=== PATIENT | female | born 1960 | race Caucasian/White ===

== ENCOUNTER 2017-02-25 14:20 | Observation (INO) | payer SELFPAY ==
--- NOTE | 2017-02-25 14:51 | DR.GENAD ---
HPI - PCP Primary Care Physician: DR. SZYMANSKI - Complaint/Symptoms Chief Complaint Doctors Comments: RLQ ABDOMINAL PAIN TIMES ONE DAY. Chief Complaint:: PATIENT STATED THAT SHE HAD A SHARP RIGHT LOWER ABD. PAIN YESTERDAY AND HAS GOTTEN WORSE. - Source History Provided: Patient - Mode of Arrival Mode of Arrival: Ambulatory - Timing Onset of Chief Complaint: 02/24/17 PMH - PMH Past Medical History: Yes Past Medical History: Hypertension Past Surgical History: Yes Surgical History: Cholecystectomy - Family History History of Family Medical Conditions: Yes Family Medical History: Cancer, PA, Coronary Artery Disease, Hypertension - Social History Does patient currently use any type of tobacco product: Yes Have you used tobacco products in the last 12 months: Yes Type of Tobacco Use: Cigarettes Does any household member use tobacco: No Alcohol Use: None Do you use any recreational Drugs:: No Lives With: Family Lives Where: Home - infectious screening In the last 2 months have you had wt loss of >10#?: NO Have you had fever, night sweats or hemotysis?: No Have you traveled outside the country in the last 6 months?: No Isolation: Standard PE - Vital Signs Vitals: Temperature 98.1 F Pulse Rate 96 Respiratory Rate 20 Blood Pressure [Right Arm] 114/78 Blood Pressure 127/85 O2 Sat by Pulse Oximetry 99 - Discharge Plan Condition: Stable - Follow ups/Referrals Follow ups/Referrals: Andriy Szymanski [Primary Care Provider] - 3 days - Instructions
[2017-02-25 15:09] LABS: BILIRUBIN,URINE NEGATIVE (NEGATIVE); BLOOD/HEMOGLOBIN,URINE NEGATIVE (NEGATIVE); GLUCOSE, URINE NEGATIVE (NEGATIVE); KETONES,URINE NEGATIVE (NEGATIVE); LEUKOCYTE ESTERASE ,URINE 1+ (NEGATIVE); NITRITES,URINE NEGATIVE (NEGATIVE); PROTEIN,URINE NEGATIVE (NEGATIVE); UROBILINOGEN,URINE NORMAL (NORMAL)
[2017-02-25 15:12] LABS: BASOPHILS # (AUTO) 0.1 X10^3/uL (0.0-0.1); BASOPHILS % (AUTO) 0.7 % (0.2-1.0); EOSINOPHILS # (AUTO) 0.2 x10^3/uL (0.0-0.2); EOSINOPHILS % (AUTO) 2.1 % (0.9-2.9); HEMATOCRIT 44.8 % (36.0-47.0); HEMOGLOBIN 15.1 g/dL (12.0-16.0); LYMPHOCYTES # (AUTO) 3.6 X10^3/uL (1.3-2.9); LYMPHOCYTES % (AUTO) 30.5 % (21.0-51.0); MEAN CORPUSCULAR HEMOGLOBIN 31.1 pg (27.0-34.0); MEAN CORPUSCULAR HGB CONC 33.6 g/dL (33.0-35.0); MEAN CORPUSCULAR VOLUME 92.6 fL (80.0-100.0); MEAN PLATELET VOLUME 8.9 fL (7.4-11.0); MONOCYTES # (AUTO) 0.7 x10^3/uL (0.3-0.8); NEUTROPHILS # (AUTO) 7.2 x10^3/uL (2.2-4.8); NEUTROPHILS % (AUTO) 60.7 % (42.0-75.0); PLATELET COUNT 207 X10^3/uL (150.0-450.0); RED BLOOD COUNT 4.83 X10^6/uL (3.5-5.4); RED CELL DISTRIBUTION WIDTH 13.2 % (11.6-16.5); WHITE BLOOD COUNT 11.9 X10^3/uL (3.6-10.0)
[2017-02-25 15:20] LABS: ALANINE AMINOTRANSFERASE 21 Units/L (12-78); ALKALINE PHOSPHATASE 71 Units/L (46-116); AMYLASE 40 Units/L (25-115); ASPARTATE AMINO TRANSFERASE 15 Units/L (15-37); BLOOD UREA NITROGEN 10 mg/dL (7-18); CALCIUM 9.2 mg/dL (8.5-10.1); CARBON DIOXIDE 29.8 mmol/L (21-32); CHLORIDE 106 mmol/L (98-107); CREATININE 0.94 mg/dL (0.55-1.02); GLUCOSE 96 mg/dL (65-99); LIPASE 90 Units/L (73-393); SODIUM 143 mmol/L (136-145); TOTAL PROTEIN 7.3 g/dL (6.4-8.2); eGFR BLACK RACES > 60 (>60); eGFR NON BLACK RACES > 60 (>60)
[2017-02-25 15:20] LABS: APPEARANCE,URINE HAZY (CLEAR); BACTERIA,URINE 1+ /HPF (NEGATIVE); COLOR,URINE YELLOW (YELLOW); RBC,URINE 0-2 /HPF (NEGATIVE); SQUAMOUS EPITHELIAL CELL,UR MODERATE /HPF (NEGATIVE)
[2017-02-25] MEDS ORDERED: MORPHINE SULFATE INJ 4 MG ONE (15:29)
[2017-02-25] MEDS ORDERED: ZOFRAN INJ 4 MG VIAL ONE (15:29)
[2017-02-25] MEDS ORDERED: MORPHINE SULFATE INJ 4 MG IVP ONE (15:45)
[2017-02-25] MEDS ORDERED: ZOFRAN INJ 4 MG VIAL IVP ONE (15:45)
[2017-02-25] MEDS ORDERED: NS 100 ML IV 100 ML IV ONE (17:40)
--- NOTE | 2017-02-25 18:20 | CT ---
HISTORY: Right lower quadrant abdominal pain Study: CT abdomen and pelvis with contrast Comparison: March 12, 2016 Technique: Multiple axial images of the abdomen and pelvis were obtained from the lung bases to the pubic symph ysis with the administration of IV contrast. Findings: Minimal atelectasis and or scarring are noted within the visualized lungs. The liver, spleen, pancre as, and adrenals are unremarkable in appearance. No CT evidence of hydronephrosis is identified. The appendix is partially air-filled and otherwise unremarkable. Scattered diverticula are seen within the transverse, descending, and sigmoid colon. The urinary bladder is not well-distended but otherwi se grossly unremarkable. Degenerative changes of the spine are noted. Surgical clips are noted withi n the gallbladder fossa. IMPRESSION: 1. Diverticulosis. 2. Cholecystectomy. Reported By:
[2017-02-25] MEDS ORDERED: MORPHINE SULFATE INJ 4 MG IVP PRN (19:00)
[2017-02-25] MEDS ORDERED: ZOFRAN INJ 4 MG VIAL IVP PRN (19:00)
[2017-02-25] MEDS ORDERED: PATIENT'S HOME MEDICATION (Pravastatin Sodium [Pravastatin Sodium] 1 TAB) PO SCH (21:00)
[2017-02-25] MEDS: NS 1000 ML 1,000 ML IV SCH (21:11)
[2017-02-25] MEDS: PEPCID 20 MG IV PREMIX* 20 MG/50 ML BAG IV SCH (21:12)
[2017-02-25] MEDS: PRAVACHOL PO SCH ×2 (21:17→21:37)
[2017-02-25] MEDS: ZANAFLEX PO SCH (21:17)
[2017-02-25] MEDS: FLAGYL IV PREMIX 500 MG BAG 500 MG/100 ML BAG IV SCH (21:18)
[2017-02-25] MEDS: ZESTRIL TAB 10 MG PO SCH ×2 (21:18→21:37)
[2017-02-25] MEDS: CIPRO IV 400 MG PREMIX* 400 MG/200 ML IV.SOLN. IV SCH ×2 (21:18)
[2017-02-25 21:49] VITALS: BMI 25.6
[2017-02-25] MEDS ORDERED: PATIENT'S HOME MEDICATION (Tizanidine Hcl [Zanaflex 4 Mg] 1 TAB) PO SCH (22:00)
[2017-02-26] MEDS: NS 1000 ML 1,000 ML IV SCH ×3 (02:16→21:28)
[2017-02-26] MEDS: FLAGYL IV PREMIX 500 MG BAG 500 MG/100 ML BAG IV SCH ×4 (02:16→21:27)
[2017-02-26] MEDS: ZANAFLEX PO SCH ×3 (05:25→21:27)
[2017-02-26 05:44] LABS: BASOPHILS % (AUTO) 0.6 % (0.2-1.0); EOSINOPHILS # (AUTO) 0.3 x10^3/uL (0.0-0.2); EOSINOPHILS % (AUTO) 4.2 % (0.9-2.9); HEMATOCRIT 38.5 % (36.0-47.0); HEMOGLOBIN 13.1 g/dL (12.0-16.0); LYMPHOCYTES # (AUTO) 2.8 X10^3/uL (1.3-2.9); LYMPHOCYTES % (AUTO) 38.5 % (21.0-51.0); MEAN CORPUSCULAR HEMOGLOBIN 31.3 pg (27.0-34.0); MEAN CORPUSCULAR VOLUME 92.1 fL (80.0-100.0); MEAN PLATELET VOLUME 9.4 fL (7.4-11.0); MONOCYTES # (AUTO) 0.7 x10^3/uL (0.3-0.8); MONOCYTES % (AUTO) 9.1 % (0.0-13.0); NEUTROPHILS # (AUTO) 3.5 x10^3/uL (2.2-4.8); NEUTROPHILS % (AUTO) 47.6 % (42.0-75.0); PLATELET COUNT 159 X10^3/uL (150.0-450.0); RED BLOOD COUNT 4.18 X10^6/uL (3.5-5.4); RED CELL DISTRIBUTION WIDTH 13.3 % (11.6-16.5); WHITE BLOOD COUNT 7.3 X10^3/uL (3.6-10.0)
[2017-02-26 05:52] LABS: ALANINE AMINOTRANSFERASE 17 Units/L (12-78); ALBUMIN 2.8 g/dL (3.4-5.0); ALKALINE PHOSPHATASE 54 Units/L (46-116); ASPARTATE AMINO TRANSFERASE 14 Units/L (15-37); BLOOD UREA NITROGEN 10 mg/dL (7-18); CALCIUM 8.2 mg/dL (8.5-10.1); CARBON DIOXIDE 26.9 mmol/L (21-32); CHLORIDE 109 mmol/L (98-107); COR CA(FOR HYPOALB) 9.2 mg/dL (8.5-10.1); CREATININE 0.89 mg/dL (0.55-1.02); GLUCOSE 100 mg/dL (65-99); SODIUM 143 mmol/L (136-145); TOTAL PROTEIN 5.5 g/dL (6.4-8.2); eGFR BLACK RACES > 60 (>60); eGFR NON BLACK RACES > 60 (>60)
[2017-02-26] MEDS ORDERED: CIPRO IV 400 MG PREMIX* 400 MG/200 ML IV.SOLN. IV SCH (09:00)
[2017-02-26] MEDS: PEPCID 20 MG IV PREMIX* 20 MG/50 ML BAG IV SCH ×2 (09:14→21:28)
[2017-02-26] MEDS: CIPRO IV 400 MG PREMIX* 400 MG/200 ML IV.SOLN. IV SCH ×2 (09:14→21:27)
[2017-02-26] MEDS ORDERED: ULTRAM PO PRN (16:29)
[2017-02-26] MEDS: ASPIRIN EC 81 MG PO SCH (18:41)
[2017-02-26] MEDS: ZANTAC PO SCH (18:41)
[2017-02-26] MEDS: PRAVACHOL PO SCH (21:26)
[2017-02-26] MEDS: ZESTRIL TAB 20 MG PO SCH (21:27)
[2017-02-27] MEDS: FLAGYL IV PREMIX 500 MG BAG 500 MG/100 ML BAG IV SCH ×2 (03:59→08:32)
[2017-02-27] MEDS: NS 1000 ML 1,000 ML IV SCH ×2 (03:59→11:20)
[2017-02-27 04:51] LABS: ALANINE AMINOTRANSFERASE 17 Units/L (12-78); ALBUMIN 2.9 g/dL (3.4-5.0); ALKALINE PHOSPHATASE 51 Units/L (46-116); ASPARTATE AMINO TRANSFERASE 14 Units/L (15-37); BLOOD UREA NITROGEN 11 mg/dL (7-18); CALCIUM 8.3 mg/dL (8.5-10.1); CARBON DIOXIDE 26.6 mmol/L (21-32); CHLORIDE 112 mmol/L (98-107); COR CA(FOR HYPOALB) 9.2 mg/dL (8.5-10.1); CREATININE 0.82 mg/dL (0.55-1.02); GLUCOSE 100 mg/dL (65-99); SODIUM 145 mmol/L (136-145); TOTAL PROTEIN 5.6 g/dL (6.4-8.2); eGFR BLACK RACES > 60 (>60); eGFR NON BLACK RACES > 60 (>60)
[2017-02-27 05:14] LABS: BASOPHILS % (AUTO) 0.6 % (0.2-1.0); EOSINOPHILS # (AUTO) 0.3 x10^3/uL (0.0-0.2); EOSINOPHILS % (AUTO) 5.7 % (0.9-2.9); HEMATOCRIT 36.2 % (36.0-47.0); HEMOGLOBIN 12.5 g/dL (12.0-16.0); LYMPHOCYTES # (AUTO) 2.2 X10^3/uL (1.3-2.9); LYMPHOCYTES % (AUTO) 37.5 % (21.0-51.0); MEAN CORPUSCULAR HEMOGLOBIN 31.3 pg (27.0-34.0); MEAN CORPUSCULAR HGB CONC 34.4 g/dL (33.0-35.0); MONOCYTES # (AUTO) 0.5 x10^3/uL (0.3-0.8); MONOCYTES % (AUTO) 8.9 % (0.0-13.0); NEUTROPHILS # (AUTO) 2.8 x10^3/uL (2.2-4.8); NEUTROPHILS % (AUTO) 47.3 % (42.0-75.0); PLATELET COUNT 163 X10^3/uL (150.0-450.0); RED BLOOD COUNT 3.98 X10^6/uL (3.5-5.4); RED CELL DISTRIBUTION WIDTH 12.9 % (11.6-16.5)
[2017-02-27] MEDS: ZANAFLEX PO SCH (06:00)
[2017-02-27 06:27] LABS: ERYTHROCYTE SEDIMENTATION RATE 7 MM/HOUR (0-20)
[2017-02-27] MEDS: PEPCID 20 MG IV PREMIX* 20 MG/50 ML BAG IV SCH (08:29)
[2017-02-27] MEDS: ASPIRIN EC 81 MG PO SCH (08:31)
[2017-02-27] MEDS: ZANTAC PO SCH (08:31)
[2017-02-27] MEDS: CIPRO IV 400 MG PREMIX* 400 MG/200 ML IV.SOLN. IV SCH (08:32)
[2017-02-27] MEDS ORDERED: COLACE CAP 100 MG PO SCH (09:00)
[2017-02-27] MEDS ORDERED: MILK OF MAGNESIA PO SCH (09:00)
--- NOTE | 2017-02-27 11:59 | DR.H&P ---
H&P - History & Physical for Day of: H&P Date: 02/25/17 - Chief Complaint Chief Complaint: Abdominal Pain - Allergies Allergies/Adverse Reactions: Allergies Allergy/AdvReac Type Severity Reaction Status Date / Time No Known Drug Allergy Allergy Verified 08/01/16 13:48 - History of Present Illness History of Present Illness: Patient presented to the emergency room with complaints of right lower quadrant pain that has been going on for one day that has gotten worse. Patient has history of hypertension, COPD, and osteoarthritis. An abdominal CTE was performed on the patient which showed Diverticulosis. Patient was admitted to the hospital for further observation. IV fluids, IV Antibiotics as well as morphine for pain and Zofran for nausea. Admission labs were within normal limits with the exception of WBC 11.9, Neut# 7.2, and Lymph# 3.6 Vital Signs 981, 96, 99% on nasal cannula 127/85 - Past Medical History Past Medical History: COPD, GERD, Hypertension - Past Surgical History Surgical History: Cholecystectomy - Family History Family Medical History: Diabetes Mellitus, Hypertension - Social History Does patient currently use any type of tobacco product: Yes Have you used tobacco products in the last 12 months: Yes Type of Tobacco Use: Cigarettes Does any household member use tobacco: No Alcohol Use: None Drug Use: None - Medications Home Medications: Aspirin [Aspirin Adult Low Dose] 1 tab PO DAILY 02/25/17 [History Confirmed 04/07] Pravastatin Sodium 1 tab PO HS 02/25/17 [History Confirmed 02/26/17] Ranitidine HCl [Ranitidine [address]] 1 tab PO DAILY 02/25/17 [History Confirmed 02/26/17] Tramadol HCl 1 tab PO TID PRN 02/25/17 [History Confirmed 02/26/17] Lisinopril 1 tab PO HS 02/26/17 [History Confirmed 02/26/17] - Review of Systems Constitutional: No Symptoms Reported Eyes: No Symptoms Reported ENT: No Symptoms Reported Respiratory: No Symptoms Reported Cardiovascular: No Symptoms Reported Gastrointestinal: Nausea, Abdominal Pain Genitourinary: No Symptoms Reported Musculoskeletal: No Symptoms Reported Skin: No Symptoms Reported Neurological: No Symptoms Reported - Physical Exam Vital Signs: 98.1, 96, 99% on nasal cannula 127/85 Oriented: Normal Eyes: Normal Ear: Normal Nose: Normal Throat: Normal Respiratory: Clear Throughout Cardiovascular: Normal : Normal Auscultation: Bowel Sounds: Normal Palpation: Normal Tenderness: Normal Skin: Normal Musculoskeletal: Normal Psychiatric: Normal Mood Description: Calm, Appropriate Affect: Normal Speech Pattern: Clear, Appropriate - Assessment/Plan (1) Diverticulosis Qualifiers: Diverticulosis site: D Diverticulosis bleeding: D Status: Acute Plan: IV cipro and levaquin (2) Abdominal pain Qualifiers: Abdominal location: A Status: Acute Plan: morphine IV as needed
--- NOTE | 2017-02-27 12:01 | PCM.PROG ---
Progress Note - Progress Note for Day of Date: 02/26/17 - Subjective Subjective: Patient is a 56yo white female who was admitted with diverticulosis. Patient is still having some pain this am so we are going to continue watch her and repeat labs in the am. Continue her home medications and continue IV Antibiotic and fluids. Vital Signs 98.0, 75, 93% on RA, 105/59Labs within normal limits with the exception of Eos% 4.2, Eos# 0.3, Chloride 109, Glucose 100, Calcium 8.2, AST 14, Total Protein 5.5, Albumin 2.8, A:bumin/ Globulin Ratio 1.0 - Past Medical Family Social History Past Med/Fam/Surg Hx: No changes since H&P Allergies: Allergies No Known Drug Allergy Allergy (Verified 08/01/16 13:48) - Review of Systems ROS: No change since H&P - Vital Signs and I&O's Vital Signs: Temperature 98.3 F Pulse Rate [Right Brachial] 71 Pulse Rate [Left Radial] 76 Pulse Rate 66 Respiratory Rate 20 Blood Pressure [Left Arm] 106/64 Blood Pressure [Right Arm] 108/74 O2 Sat by Pulse Oximetry 96 Intake and Output: Intake & Output 02/24/17 02/25/17 02/26/17 02/27/17 11:59 11:59 11:59 11:59 Intake Total 2030 2669 Balance 2030 2669 - Physical Exam Oriented: Normal Eyes: Normal Ear: Normal Nose: Normal Throat: Normal Respiratory: Normal Cardiovascular: Normal : Normal Auscultation: Bowel Sounds: Normal Palpation: Normal Tenderness: Diffuse Skin: Normal Musculoskeletal: Normal Psychiatric: Normal Mood Description: Calm, Appropriate Affect: Normal Speech Pattern: Clear, Appropriate - Laboratory and Diagnostics Result Diagrams: 02/27/17 04:15 02/27/17 04:15 Labs: Labs within normal limits with the exception of Eos% 4.2, Eos# 0.3, Chloride 109 , Glucose 100, Calcium 8.2, AST 14, Total Protein 5.5, Albumin 2.8, A:bumin/ Globulin Ratio 1.0 Radiology Reviewed: Yes - Plan (1) Diverticulosis Status: Acute Qualifiers: Diverticulosis site: D Diverticulosis bleeding: D Plan: IV cipro and levaquin (2) Abdominal pain Status: Acute Qualifiers: Abdominal location: A Plan: morphine IV as needed
--- NOTE | 2017-02-27 12:03 | DR.CARTERD ---
- Discharge Summary for: Discharge Summary for Date of:: 02/27/17 - Admission Date Date of Admission: 02/25/17 - Admission Diagnoses Admission Diagnosis: Diverticulosis. Abdominal Pain - Discharge Date Discharge Date: 02/27/17 - Discharge Diagnoses Discharge Diagnosis: Diverticulosis Abdominal Pain - Hospital Course Hospital Course: Patient is a 56yo white female who was admitted to the hospital with diverticulosis. Patient was placed on IV Fluids as well as IV Flagyl and Cipro which she responded well to. Patient states that she is feeling much better this am and her abdominal pain is not near as bad as it was on admission. Vital Signs 98.3, 71, 96% on RA, 106/64Labs within normal limits with the exception of Eos% 5.7, Eos# 0.3, Chloride 112, Glucose 100, Calcium 8.3, AST 14, Total Protein 5.6, Albumin 2.9 We are going to discharge her home in stable condition and she is to follow up in 1 week with out office. Patient will be discharged to continue her home medications as well as the addition of Miralax 17gm at bedtime, Colace 100mg PO Bid, Milk of magnesia PRN constipation, Flagyl 500mg PO Daily and Cipro 500mg Po Q12hr. Labs: Labs within normal limits with the exception of Eos% 5.7, Eos# 0.3, Chloride 112 , Glucose 100, Calcium 8.3, AST 14, Total Protein 5.6, Albumin 2.9 - Discharge Medications Discharge Medications: Aspirin [Aspirin Adult Low Dose] 1 tab PO DAILY 02/25/17 [History] Pravastatin Sodium 1 tab PO HS 02/25/17 [History] Ranitidine HCl [Ranitidine [address]] 1 tab PO DAILY 02/25/17 [History] Tramadol HCl 1 tab PO TID PRN 02/25/17 [History] Lisinopril 1 tab PO HS 02/26/17 [History] Ciprofloxacin HCl [CIPRO 500 MG TAB *] 500 mg PO Q12H #14 tab 02/27/17 [Rx] Docusate Sodium [Colace Cap 100 mg] 100 mg PO BID PRN #60 cap 02/27/17 [Rx] Magnesium Hydroxide Susp [Milk of Magnesia] 30 ml PO QID PRN #240 ml 02/27/17 [ Rx] Metronidazole [Flagyl Tab 500 mg] 500 mg PO DAILY #7 tab 02/27/17 [Rx] Polyethylene Glycol Pwd Ud [MIRALAX POWDER (17 GM DOSE) *] 17 gm PO HS #14 angela 02/27/17 [Rx] - Discharge Disposition Discharge Disposition: Home
[2017-02-27 12:26] VITALS: BP 122/91
== END 2017-02-27 12:05 | disposition home or self-care (01) ==
LOC: ER 14:27 → MED/SURG 19:02
PROVIDERS: ADMIT Internal Medicine; ATTEND Internal Medicine
DX: K57.90 Diverticulosis of intestine, part unspecified, without perforation or abscess without bleeding (principal); R10.31 Right lower quadrant pain; I25.10 Atherosclerotic heart disease of native coronary artery without angina pectoris; J44.9 Chronic obstructive pulmonary disease, unspecified; M13.89 Other specified arthritis, multiple sites; D72.828 Other elevated white blood cell count; I10 Essential (primary) hypertension
CPT/HCPCS: 36415; 74177; 80053; 81001; 82150; 83690; 85025; 85652; 86140; 99284; A4222; S0028; S0030; G0378; J0744; J2270; J2405

== ENCOUNTER → 2017-03-17 | Outpatient (CLI) | payer SELFPAY ==
[2017-02-27 12:26] VITALS: BP 122/91
[~2017-03-17] MED LIST: NS 100 ML IV 100 ML IV ONE
[2017-03-17 09:01] LABS: CREATININE 0.9 mg/dL (0.55-1.02)
--- NOTE | 2017-03-17 10:59 | CT ---
HISTORY: Right lower lobe atelectasis. Study: CT chest with contrast Comparison: CT abdomen/pelvis dated February 25, 2017 and chest x-ray dated August 26, 2016. Technique: Multiple axial images of the chest were obtained from the thoracic inlet to the upper abd omen after the administration of IV contrast. Dose reduction techniques including Automated Exposur e Control (AEC) and adjustment of mA and kV were utilized. Findings: The mediastinum does not demonstrate significant pathological lymphadenopathy. There is no paracard ial effusion observed. The thoracic aorta is normal in its contour without evidence for aneurysmal dilatation. The central pulmonary arterial system does not demonstrate central filling defects to s uggest pulmonary emboli. Mild centrilobular and paraseptal emphysematous changes, predominantly of the upper lungs. Biapical and bibasilar scarring. No obvious pulmonary nodule, pleural effusion, focal consolidation, or mass. The visualized upper abdominal structures demonstrate a normal contrast appearance. The osseous str uctures appear normal for age. IMPRESSION: 1. No CT evidence of acute thoracic pathology. 2. Chronic findings as above. Reported By:
== END ==
LOC: RAD 08:30
PROVIDERS: ATTEND Internal Medicine
DX: J98.11 Atelectasis (principal); F17.200 Nicotine dependence, unspecified, uncomplicated; R07.81 Pleurodynia
CPT/HCPCS: 36415; 71260; 82565; 84520; A4222

== ENCOUNTER 2017-08-07 09:15 | Day surgery (SDC) | payer OTHER ==
[2017-08-07] MEDS ORDERED: D5 LR 1000 ML 1,000 ML IV ONE (09:20)
[2017-08-07] MEDS ORDERED: DIPRIVAN VIAL 20 ML ONE (10:44)
[2017-08-07 11:38] VITALS: BP 111/70
== END 2017-08-07 11:40 | disposition home or self-care (01) ==
LOC: SURG1 09:15
PROVIDERS: ATTEND Internal Medicine Gastroenterology
PROC: 0D757ZZ Dilation of Esophagus, Via Natural or Artificial Opening (ICD-10-PCS; principal; 2017-08-07 12:00)
PROC: 0DB68ZX Excision of Stomach, Via Natural or Artificial Opening Endoscopic, Diagnostic (ICD-10-PCS; principal; 2017-08-07 12:00)
PROC: 0W3P8ZZ Control Bleeding in Gastrointestinal Tract, Via Natural or Artificial Opening Endoscopic (ICD-10-PCS; principal; 2017-08-07 12:00)
PROC: 0DJ08ZZ Inspection of Upper Intestinal Tract, Via Natural or Artificial Opening Endoscopic (ICD-10-PCS; principal; 2017-08-07 12:00)
DX: R13.19 Other dysphagia (principal); K21.9 Gastro-esophageal reflux disease without esophagitis; Z87.19 Personal history of other diseases of the digestive system; R10.13 Epigastric pain; Q27.33 Arteriovenous malformation of digestive system vessel; K29.60 Other gastritis without bleeding; K20.8 Other esophagitis; K22.2 Esophageal obstruction
CPT/HCPCS: A4217; J3490; J7120

== ENCOUNTER 2017-08-23 20:33 | Emergency (ER) | payer OTHER ==
[2017-08-23 20:44] VITALS: BMI 26.6
[2017-08-23] MEDS ORDERED: DEMEROL INJ IM ONE (22:50)
[2017-08-23] MEDS ORDERED: PHENERGAN INJ 25 MG IM ONE (22:50)
--- NOTE | 2017-08-23 22:51 | DR.GENAD ---
HPI - Complaint/Symptoms Chief Complaint Doctors Comments: Patient is complaining of left CVA and scapular pain for the past eight hours getting worst. states she got up this evening and thought she pulled a muscle but the pain continues in her left side worst when she moves. States she is having sharp pain that is 10 of 10. she denies dysuria, hematuria, erlinda, cold or cough or chest pain. states she is a patient of Dr. Lares and had never had problems with kidney stones. She denies any recent trauma. Chief Complaint:: PT STATE THAT TODAY SHE STOOD UP FROM A CHAIR AND BEGAN EXPERIENCING SHARP LOWER BACK PAIN ON LT SIDE. STATES THAT IT HURTS WORSE TO MOVE HER RT ARM - Nurses notes reviewed Nurses Notes Review: Yes - Source History Provided: Patient - Mode of Arrival Mode of Arrival: Ambulatory - Timing Onset of Chief Complaint: 08/23/17 Came on: Gradually - Duration Duration: Constant How lon Duration: Hours - Location Location: left lower back pain - Severity Severity: Moderate - Modifying Factors Worsens:: movement Improves:: nothing PMH - PMH Past Medical History: Yes Past Medical History: COPD, GERD, Hypertension Past Surgical History: Yes Surgical History: Cholecystectomy - Family History History of Family Medical Conditions: Yes Family Medical History: Diabetes Mellitus, Hypertension - Social History Do you use any recreational Drugs:: No - infectious screening Have you traveled outside the country in the last 6 months?: No ROS - Review of Systems Constitutional: No Symptoms Reported. negative: See HPI, Chills, Diaphoresis, Fever, Malaise, Weakness, Irritable, Fatigue, Loss of Appetite, Other Eyes: No Symptoms Reported ENTM: No Symptoms Reported. negative: See HPI, Ear Pain, Ear Discharge, Pulling on Ears, Hearing Loss, Nose Pain, Nose Discharge, Epistaxis, Nose Congestion, Mouth Pain, Mouth Swelling, Loose Teeth, Drooling, Throat Pain, Throat Swelling, Ear Foreign Body Respiratoy: No Symptoms Reported. negative: See HPI, Productive Cough, Non- Productive Cough, Moist Cough, Dry Cough, Hacking Cough, Barking Cough, Brassy Cough, Orthopnea, Short of Breath, Stridor, Wheezing, Hemoptysis, Other Cardiovascular: No Symptoms Reported. negative: See HPI, Chest Pain, Edema, Palpitations, Syncope, Cyanosis, Skin Mottling, Other Gastrointestinal/Abdominal: No Symptoms Reported, Abdominal Pain. negative: See HPI, Constipation, Diarrhea, Nausea, Vomiting, Food Intolerance, Other Genitourinary: No Symptoms Reported. negative: See HPI, Discharge, Dysuria, Frequency, Hematuria, Pain, Bleeding, Other Neurological: No Symptoms Reported. negative: See HPI, Anxiety, Depressed, Emotional Problems, Headache, Numbness, Paresthesia, Pre-existing Deficit, Seizure, Tingling, Tremors, Weakness, Dizziness, Problems Walking, Speech Problem, Other Musculoskeletal: No Symptoms Reported, Back Pain, Left Integumentary: No Symptoms Reported. negative: See HPI, Change in Color, Change in Hair/Nails, Dryness, Lesions, Lumps, Rash, Itching, Wound, Bruises, Juandice, Other Hematologic/Lymphatic: No Symptoms Reported. negative: See HPI, Anemia, Blood Clots, Easy Bleeding, Easy Bruising, Swollen Glands, Lymphadenopathy, Other Endocrine: No Symptoms Reported Psychiatric: No Symptoms Reported. negative: See HPI, Anxiety, Depression, Hallucinations, Excessive crying, Suicidal, Other PE - Vital Signs Vitals: Temperature 97.7 F Pulse Rate 89 Respiratory Rate 18 Blood Pressure [Left Arm] 122/91 Blood Pressure [Right Arm] 108/74 Blood Pressure 138/97 O2 Sat by Pulse Oximetry 97 - General Limitations: No Limitations General Appearance: Alert, In Distress (moderate) - Head Head Exam: Normal Inspection, Atraumatic, Normocephalic - Eyes Eye exam: Normal Appearance, PERRL, EOMI. negative: Scleral Icterus, Conjunctival Injection, Nystagmus, Miosis, Mydrasis, Periorbital Swelling, Periorbital Tenderness, Other - ENT ENT Exam: Normal Exam, Normal Oropharynx, Normal External Ear Exam, TM's Normal Bilaterally External Ear Exam: Normal External Inspection TM/Canal Exam: Bilateral Normal Nose Exam: Normal Nose Exam Mouth Exam: Normal Inspection. negative: Drooling, Trismus, Lip Swelling, Tongue Elevation, Tongue Swelling, Laceration, Other Throat Exam: Normal Inspection - Neck Neck Exam: Normal Inspection, Full ROM, Trachea Midline - Chest Chest Inspection: Normal Inspection, Symmetric Chest Wall Rise. negative: Tenderness, Rash, Abscess, Other - Respiratory Respiratory Exam: Normal Lung Sounds Bilat Respiratory Exam: Bilateral Clear to Auscultation - Cardiovascular Cardiovascular Exam: Regular Rate, Normal Rhythm, Normal Heart Sounds - Abdominal Exam Abdominal Exam: Normal Inspection, Normal Bowel Sounds, Soft, Tenderness, Guarding, Dimnished Bowel Sounds Abdominal Tenderness: LUQ, Moderate - Extremities Extremities Exam: Normal Inspection, Full ROM, Normal Capillary Refill. negative: Tenderness, Edema, Joint Swelling, Calf Tenderness, Other - Back Back Exam: Normal Inspection, Full ROM, Tenderness, (L) CVA Tenderness. negative: (R) CVA Tenderness, Muscle Spasm, Paraspinal Tenderness, Vertebral Tenderness, Rashes, (R) Sciatic Notch Tenderness, (L) Sciatic Notch Tendern, (R ) Straight Leg Raise, (L) Straight Leg Raise, Other - Neurologic Neurological Exam: Alert, Oriented X3, CN II-XII Intact, Normal Gait, Reflexes Normal - Psychiatric Psychiatric Exam: Normal Affect, Normal Mood - Skin Skin Exam: Warm, Dry, Intact, Normal Color ROR - Labs Reviewed Laboratory Results Reviewed?: Yes (all labs and x-ray results reviewed and discussed with patient) Result Diagrams: 08/23/17 22:55 08/23/17 22:55 Laboratory: WBC 7.6 X10^3/uL (3.6-10.0) 08/23/17 22:55 RBC 4.45 X10^6/uL (3.5-5.4) 08/23/17 22:55 Hgb 14.0 g/dL (12.0-16.0) 08/23/17 22:55 Hct 40.6 % (36.0-47.0) 08/23/17 22:55 MCV 91.1 fL (80.0-100.0) 08/23/17 22:55 MCH 31.4 pg (27.0-34.0) 08/23/17 22:55 MCHC 34.4 g/dL (33.0-35.0) 08/23/17 22:55 RDW 13.4 % (11.6-16.5) 08/23/17 22:55 Plt Count 217 X10^3/uL (150.0-450.0) 08/23/17 22:55 MPV 8.4 fL (7.4-11.0) 08/23/17 22:55 Neut % 47.7 % (42.0-75.0) 08/23/17 22:55 Lymph % 38.6 % (21.0-51.0) 08/23/17 22:55 [place]oshone % 7.7 % (0.0-13.0) 08/23/17 22:55 Eos % 4.7 % (0.9-2.9) H 08/23/17 22:55 Baso % 1.3 % (0.2-1.0) H 08/23/17 22:55 Neut # 3.6 x10^3/uL (2.2-4.8) 08/23/17 22:55 Lymph # 2.9 X10^3/uL (1.3-2.9) 08/23/17 22:55 [place]one # 0.6 x10^3/uL (0.3-0.8) 08/23/17 22:55 Eos # 0.4 x10^3/uL (0.0-0.2) H 08/23/17 22:55 Baso # 0.1 X10^3/uL (0.0-0.1) 08/23/17 22:55 Absolute Nucleated RBC 0.1 /100WBC 08/23/17 22:55 Sodium 140 mmol/L (136-145) 08/23/17 22:55 Corrected Sodium 141 mmol/L (136-145) 08/23/17 22:55 Potassium 4.6 mmol/L (3.5-5.1) 08/23/17 22:55 Chloride 105 mmol/L (98-107) 08/23/17 22:55 Carbon Dioxide 28.0 mmol/L (21-32) 08/23/17 22:55 BUN 15 mg/dL (7-18) 08/23/17 22:55 Creatinine 0.72 mg/dL (0.55-1.02) 08/23/17 22:55 Est GFR (MDRD) Af Amer > 60 (>60) 08/23/17 22:55 Est GFR (MDRD) Non-Af > 60 (>60) 08/23/17 22:55 Glucose 125 mg/dL (65-99) H 08/23/17 22:55 Calcium 9.2 mg/dL (8.5-10.1) 08/23/17 22:55 Corrected Calcium TNP 08/23/17 22:55 Total Bilirubin 0.10 mg/dL (0.2-1.0) L 08/23/17 22:55 AST 11 Units/L (15-37) L 08/23/17 22:55 ALT 21 Units/L (12-78) 08/23/17 22:55 Alkaline Phosphatase 74 Units/L (46-116) 08/23/17 22:55 Total Protein 7.0 g/dL (6.4-8.2) 08/23/17 22:55 Albumin 4.0 g/dL (3.4-5.0) 08/23/17 22:55 Globulin 3.0 g/dL (2.5-4.5) 08/23/17 22:55 Albumin/Globulin Ratio 1.3 Ratio (1.1-2.1) 08/23/17 22:55 Amylase 49 Units/L (25-115) 08/23/17 22:55 Lipase 150 Units/L (73-393) 08/23/17 22:55 Specimen Type Clean catch urine 08/24/17 01:06 Urine Color Yellow (YELLOW) 08/24/17 01:06 Urine Appearance Hazy (CLEAR) 08/24/17 01:06 Urine pH 5.0 (5.0 - 8.0) 08/24/17 01:06 Ur Specific [place] 1.020 (1.000-1.030) 08/24/17 01:06 Urine Protein Negative (NEGATIVE) 08/24/17 01:06 Urine Glucose (UA) Negative (NEGATIVE) 08/24/17 01:06 Urine Ketones Negative (NEGATIVE) 08/24/17 01:06 Urine Occult Blood Trace (NEGATIVE) 08/24/17 01:06 Urine Nitrite Negative (NEGATIVE) 08/24/17 01:06 Urine Bilirubin Negative (NEGATIVE) 08/24/17 01:06 Urine Urobilinogen Normal (NORMAL) 08/24/17 01:06 Ur Leukocyte Esterase Negative (NEGATIVE) 08/24/17 01:06 Urine RBC 0-3 /HPF (NEGATIVE) 08/24/17 01:06 Urine WBC 0-3 /HPF (NEGATIVE) 08/24/17 01:06 Ur Squamous Epith Cells Numerous /HPF (NEGATIVE) 08/24/17 01:06 Urine Bacteria Trace /HPF (NEGATIVE) 08/24/17 01:06 Ur Culture Indicated? No/not indicated 08/24/17 01:06 - XRAY XRAY Interpreted by: Radiologist (CT abdomen: Diverticulosis. No etiology for patient's symptoms identified.) - Diagnosis Discharge Problem: Musculoskeletal back pain Low back pain Qualifiers: Chronicity: acute Back pain laterality: left Sciatica presence: without sciatica Qualified Code(s): M54.5 - Low back pain - Discharge Plan Disposition: 01 HOME, SELF-CARE Condition: Stable Prescriptions: Cyclobenzaprine HCl [FLEXERIL 10 MG *] 10 mg PO BID #18 tab Ibuprofen [MOTRIN TAB 800 MG *] 800 mg PO BID PRN #30 tab PRN Reason: Pain/Inflammation - Follow ups/Referrals Follow ups/Referrals: Andriy Lares [Primary Care Provider] - 3 days ROBERT TINSLEY [STAFF PHYSICIAN] - 3 days - Instructions Instructions: Back Pain, Adult, [id number], Musculoskeletal Pain
[2017-08-23 23:08] LABS: BASOPHILS # (AUTO) 0.1 X10^3/uL (0.0-0.1); BASOPHILS % (AUTO) 1.3 % (0.2-1.0); EOSINOPHILS # (AUTO) 0.4 x10^3/uL (0.0-0.2); EOSINOPHILS % (AUTO) 4.7 % (0.9-2.9); HEMATOCRIT 40.6 % (36.0-47.0); LYMPHOCYTES # (AUTO) 2.9 X10^3/uL (1.3-2.9); LYMPHOCYTES % (AUTO) 38.6 % (21.0-51.0); MEAN CORPUSCULAR HEMOGLOBIN 31.4 pg (27.0-34.0); MEAN CORPUSCULAR HGB CONC 34.4 g/dL (33.0-35.0); MEAN CORPUSCULAR VOLUME 91.1 fL (80.0-100.0); MEAN PLATELET VOLUME 8.4 fL (7.4-11.0); MONOCYTES # (AUTO) 0.6 x10^3/uL (0.3-0.8); MONOCYTES % (AUTO) 7.7 % (0.0-13.0); NEUTROPHILS # (AUTO) 3.6 x10^3/uL (2.2-4.8); NEUTROPHILS % (AUTO) 47.7 % (42.0-75.0); PLATELET COUNT 217 X10^3/uL (150.0-450.0); RED BLOOD COUNT 4.45 X10^6/uL (3.5-5.4); RED CELL DISTRIBUTION WIDTH 13.4 % (11.6-16.5); WHITE BLOOD COUNT 7.6 X10^3/uL (3.6-10.0)
[2017-08-23] MEDS ORDERED: DEMEROL INJ ONE (23:11)
[2017-08-23] MEDS ORDERED: PHENERGAN INJ 25 MG ONE (23:11)
[2017-08-23 23:17] LABS: ALANINE AMINOTRANSFERASE 21 Units/L (12-78); ALKALINE PHOSPHATASE 74 Units/L (46-116); AMYLASE 49 Units/L (25-115); ASPARTATE AMINO TRANSFERASE 11 Units/L (15-37); BLOOD UREA NITROGEN 15 mg/dL (7-18); CALCIUM 9.2 mg/dL (8.5-10.1); CHLORIDE 105 mmol/L (98-107); COR NA(FOR HYPERGLY) 141 mmol/L (136-145); CREATININE 0.72 mg/dL (0.55-1.02); LIPASE 150 Units/L (73-393); SODIUM 140 mmol/L (136-145); eGFR BLACK RACES > 60 (>60); eGFR NON BLACK RACES > 60 (>60)
--- NOTE | 2017-08-24 00:31 | CT ---
CT abdomen and pelvis without contrast Indication: Left flank pain Comparison: 02/25/2017 Technique: CT images of the abdomen and pelvis were obtained without contrast. Automatic exposure con trol was utilized. Findings: No acute skeletal abnormality. The lung bases are clear. Previous cholecystectomy. Within noncontrast limitations, the liver, spleen, stomach, duodenum, pancr eas, adrenals, and kidneys are unremarkable. Specifically, there is no nephrolithiasis or hydronephro sis. No ureteral stones identified. Diverticulosis without acute diverticulitis. No significant bowel thickening or dilatation of the lower GI tract is observed. Normal appendix. The uterus and ovaries are noted. The urinary bladder and rectum are unremarkable. No free fluid or adenopathy identified. Impression: No etiology for patient's symptoms identified. Specifically, no renal stone or obstruction. Diverticulosis. Reported By:
[2017-08-24 01:42] LABS: APPEARANCE,URINE HAZY (CLEAR); COLOR,URINE YELLOW (YELLOW)
[2017-08-24 01:43] LABS: GLUCOSE, URINE NEGATIVE (NEGATIVE); KETONES,URINE NEGATIVE (NEGATIVE); PROTEIN,URINE NEGATIVE (NEGATIVE)
[2017-08-24 01:44] LABS: BACTERIA,URINE TRACE /HPF (NEGATIVE); BILIRUBIN,URINE NEGATIVE (NEGATIVE); BLOOD/HEMOGLOBIN,URINE TRACE (NEGATIVE); LEUKOCYTE ESTERASE ,URINE NEGATIVE (NEGATIVE); NITRITES,URINE NEGATIVE (NEGATIVE); RBC,URINE 0-3 /HPF (NEGATIVE); SQUAMOUS EPITHELIAL CELL,UR NUMEROUS /HPF (NEGATIVE); UROBILINOGEN,URINE NORMAL (NORMAL)
[2017-08-24 02:26] VITALS: BP 135/82
== END 2017-08-24 02:25 | disposition home or self-care (01) ==
LOC: ER 20:33
DX: M79.1 Myalgia (principal); M54.5 Low back pain
CPT/HCPCS: 36415; 74176; 80053; 81001; 82150; 83690; 85025; 96372; 99282; 99283; J2175; J2550

== ENCOUNTER → 2017-09-02 | Outpatient (CLI) | payer OTHER ==
[2017-08-24 02:26] VITALS: BP 135/82
--- NOTE | 2017-09-02 07:57 | RAD ---
Examination: Right knee, four views History: Bilateral pain Findings: There is no evidence for trauma, bone destruction, synovial fluid or pathologic calcificati on. Articular spaces are preserved. Impression: No acute or significant abnormality demonstrated. Reported By:
--- NOTE | 2017-09-02 08:00 | RAD ---
Examination: Cervical spine, five views History: Degeneration of C5-6 Findings: There is degenerative disc narrowing at C5-6 with marginal osteophyte formation. There is 2 .0 mm retrolisthesis at C5-6, 3.0 mm anterior listhesis at C4-5. No fracture or bone destruction is s een. There is arthritic deformity of the lower uncinate processes. Osteophyte narrows the left neural foramen at C5-6. The odontoid is midline/intact. Vascular calcification is present in the left neck. Impression: 1. Degenerative disc disease at C5-6 with uncovertebral joint arthropathy and narrowing of the left n eural foramen at this level. 2. Malalignment at C4-5-6 consistent with facet arthrosis. 3. Left neck calcification consistent with arteriosclerosis of the cervical carotid bifurcation. Reported By:
--- NOTE | 2017-09-02 08:00 | RAD ---
Examination: Left knee, four views History: Bilateral pain Findings: There is no evidence for fracture, arthropathy, bone destruction or soft tissue abnormality . Impression: No acute or significant findings. Reported By:
== END | disposition home or self-care (01) | DRG 552 ==
LOC: RAD 07:16
PROVIDERS: ATTEND Orthopaedic Surgery
DX: M50.322 Other cervical disc degeneration at C5-C6 level (principal); M25.561 Pain in right knee; M25.562 Pain in left knee
CPT/HCPCS: 72050; 73564

== ENCOUNTER 2019-06-23 11:55 | Inpatient (IN) ==
[2019-06-23 12:02] VITALS: BMI 25.0
--- NOTE | 2019-06-23 13:13 | DR.GENAD ---
HPI Time Seen Time Seen by Provider: 06/23/19 12:50 PCP Primary Care Physician: [email or web address] Complaint/Symptoms Chief Complaint:: pt stated she has been having lower abd pain for 2 weeks. she stated she thinks it may be her diverticulitis actiong up again. Source History Provided: Patient Mode of Arrival Mode of Arrival: Ambulatory Timing Onset of Chief Complaint: 06/02/19 PMH PMH Past Medical History: Yes Past Medical History: Anxiety, COPD, Depression, GERD and Hypertension Past Surgical History: Yes Surgical History: , Cholecystectomy and Ortho Surgery Family History History of Family Medical Conditions: Yes Family Medical History: Diabetes Mellitus, [place] and Hypertension Social History Does patient currently use any type of tobacco product: Yes Have you used tobacco products in the last 12 months: Yes Type of Tobacco Use: Cigarettes How many years tobacco product used: 20 Does any household member use tobacco: Yes Alcohol Use: None Do you use any recreational Drugs:: No Lives With: Family Lives Where: Home infectious screening In the last 2 months have you had wt loss of >10#?: NO Have you had fever, night sweats or hemotysis?: No Have you traveled outside the country in the last 6 months?: No Isolation: Standard PE Vital Signs Vitals: Temperature 98.6 F Pulse Rate 88 Respiratory Rate 18 Blood Pressure [Left Arm] 139/73 Blood Pressure 127/70 O2 Sat by Pulse Oximetry 98 ROR Labs Reviewed Result Diagrams: 06/23/19 13:18 06/23/19 13:18 Laboratory: WBC 9.1 X10^3/uL (3.6-10.0) 06/23/19 13:18 RBC 4.27 X10^6/uL (3.5-5.4) 06/23/19 13:18 Hgb 13.5 g/dL (12.0-16.0) 06/23/19 13:18 Hct 39.2 % (36.0-47.0) 06/23/19 13:18 MCV 91.9 fL (80.0-100.0) 06/23/19 13:18 MCH 31.7 pg (27.0-34.0) 06/23/19 13:18 MCHC 34.5 g/dL (33.0-35.0) 06/23/19 13:18 RDW 13.6 % (11.6-16.5) 06/23/19 13:18 Plt Count 181 X10^3/uL (150.0-450.0) 06/23/19 13:18 MPV 8.8 fL (7.4-11.0) 06/23/19 13:18 Neut % (Auto) 65.0 % (42.0-75.0) 06/23/19 13:18 Lymph % (Auto) 22.1 % (21.0-51.0) 06/23/19 13:18 [place] % (Auto) 9.6 % (0.0-13.0) 06/23/19 13:18 Eos % (Auto) 2.7 % (0.9-2.9) 06/23/19 13:18 Baso % (Auto) 0.6 % (0.2-1.0) 06/23/19 13:18 Neut # (Auto) 5.9 x10^3/uL (2.2-4.8) H 06/23/19 13:18 Lymph # (Auto) 2.0 X10^3/uL (1.3-2.9) 06/23/19 13:18 [place] # (Auto) 0.9 x10^3/uL (0.3-0.8) H 06/23/19 13:18 Eos # (Auto) 0.2 x10^3/uL (0.0-0.2) 06/23/19 13:18 Baso # (Auto) 0.1 X10^3/uL (0.0-0.1) 06/23/19 13:18 Absolute Nucleated RBC 0.0 /100WBC 06/23/19 13:18 Sodium 138 mmol/L (136-145) 06/23/19 13:18 Corrected Sodium TNP 06/23/19 13:18 Potassium 3.9 mmol/L (3.5-5.1) 06/23/19 13:18 Chloride 103 mmol/L (98-107) 06/23/19 13:18 Carbon Dioxide 30.1 mmol/L (21-32) 06/23/19 13:18 BUN 12 mg/dL (7-18) 06/23/19 13:18 Creatinine 0.86 mg/dL (0.55-1.02) 06/23/19 13:18 Est GFR (MDRD) Af Amer > 60 (>60) 06/23/19 13:18 Est GFR (MDRD) Non-Af > 60 (>60) 06/23/19 13:18 Glucose 99 mg/dL (65-99) 06/23/19 13:18 Calcium 8.7 mg/dL (8.5-10.1) 06/23/19 13:18 Corrected Calcium 9.3 mg/dL (8.5-10.1) 06/23/19 13:18 Total Bilirubin 0.60 mg/dL (0.2-1.0) 06/23/19 13:18 AST 14 Units/L (15-37) L 06/23/19 13:18 ALT 14 Units/L (12-78) 06/23/19 13:18 Alkaline Phosphatase 82 Units/L (46-116) 06/23/19 13:18 Total Protein 6.7 g/dL (6.4-8.2) 06/23/19 13:18 Albumin 3.2 g/dL (3.4-5.0) L 06/23/19 13:18 Globulin 3.5 g/dL (2.5-4.5) 06/23/19 13:18 Albumin/Globulin Ratio 0.9 Ratio (1.1-2.1) L 06/23/19 13:18 Amylase 23 Units/L (25-115) L 06/23/19 13:18 Lipase 50 Units/L (73-393) L 06/23/19 13:18 Specimen Type Clean catch urine 06/23/19 12:57 Urine Color Yellow (YELLOW) 06/23/19 12:57 Urine Appearance Clear (CLEAR) 06/23/19 12:57 Urine pH 5.0 (5.0 - 8.0) 06/23/19 12:57 Ur Specific [place] 1.025 (1.000-1.030) 06/23/19 12:57 Urine Protein 1+ (NEGATIVE) 06/23/19 12:57 Urine Glucose (UA) Negative (NEGATIVE) 06/23/19 12:57 Urine Ketones 1+ (NEGATIVE) 06/23/19 12:57 Urine Occult Blood 2+ (NEGATIVE) 06/23/19 12:57 Urine Nitrite Negative (NEGATIVE) 06/23/19 12:57 Urine Bilirubin 1+ (NEGATIVE) 06/23/19 12:57 Urine Urobilinogen 2+ (NORMAL) 06/23/19 12:57 Ur Leukocyte Esterase 1+ (NEGATIVE) 06/23/19 12:57 Urine RBC 3-5 /HPF (0-3) A 06/23/19 12:57 Urine WBC 3-5 /HPF (0-5) 06/23/19 12:57 Ur Squamous Epith Cells Few /HPF (NEGATIVE) 06/23/19 12:57 Amorphous Sediment Trace /HPF (NEGATIVE) 06/23/19 12:57 Urine Bacteria Trace /HPF (NEGATIVE) 06/23/19 12:57 Ur Culture Indicated? Yes/culture set up 06/23/19 12:57 Opioid Opioid Risk Tool Age (Doug box if 16-45): No Total: 0 Total Score Risk Category: Low Risk Copyright: Sanjay GONZALEZ predicting aberrant behaviors
[2019-06-23 13:15] LABS: BILIRUBIN,URINE 1+ (NEGATIVE); BLOOD/HEMOGLOBIN,URINE 2+ (NEGATIVE); GLUCOSE, URINE NEGATIVE (NEGATIVE); KETONES,URINE 1+ (NEGATIVE); LEUKOCYTE ESTERASE ,URINE 1+ (NEGATIVE); NITRITES,URINE NEGATIVE (NEGATIVE); PROTEIN,URINE 1+ (NEGATIVE); UROBILINOGEN,URINE 2+ (NORMAL)
[2019-06-23 13:21] LABS: APPEARANCE,URINE CLEAR (CLEAR); COLOR,URINE YELLOW (YELLOW)
--- NOTE | 2019-06-23 13:24 | CT ---
HISTORY: Lower abdominal pain, left flank pain, left lower quadrant pain Study: CT abdomen and pelvis without contrast Comparison: None Technique: Multiple axial images of the abdomen and pelvis were obtained without IV contrast. Dose reduction techniques including Automated Exposure Control (AEC) and adjustment of mA and kV were utilized. Findings: Please note evaluation is limited without use of IV contrast. The visualized lung bases are clear. The liver, spleen, pancreas, and adrenal glands are unremarkable in their unenhanced CT appearance. Gallbladder is removed. No renal calculi or obstructive uropathy identified. No free intraperitoneal air. No evidence of intestinal obstruction. Appendix is normal. There is segmental colonic bowel wall edema and pericolonic stranding of the distal descending colon and proximal sigmoid colon with numerous inflamed diverticula compatible with acute diverticulitis. There is mild fascial thickening along the inferior pericolic gutter without evidence of abscess or gross perforation. No ascites. The soft tissues and osseous structures are unremarkable. Limited evaluation of vascular structures due to lack of contrast. No pathologically enlarged lymph nodes are identified. Urinary bladder is not well distended. IMPRESSION: 1. Findings compatible with acute diverticulitis involving the distal colon as described without evidence of abscess or perforation. Reported By:
[2019-06-23 13:26] LABS: BASOPHILS # (AUTO) 0.1 X10^3/uL (0.0-0.1); BASOPHILS % (AUTO) 0.6 % (0.2-1.0); EOSINOPHILS # (AUTO) 0.2 x10^3/uL (0.0-0.2); EOSINOPHILS % (AUTO) 2.7 % (0.9-2.9); HEMATOCRIT 39.2 % (36.0-47.0); HEMOGLOBIN 13.5 g/dL (12.0-16.0); LYMPHOCYTES % (AUTO) 22.1 % (21.0-51.0); MEAN CORPUSCULAR HEMOGLOBIN 31.7 pg (27.0-34.0); MEAN CORPUSCULAR HGB CONC 34.5 g/dL (33.0-35.0); MEAN CORPUSCULAR VOLUME 91.9 fL (80.0-100.0); MEAN PLATELET VOLUME 8.8 fL (7.4-11.0); MONOCYTES # (AUTO) 0.9 x10^3/uL (0.3-0.8); MONOCYTES % (AUTO) 9.6 % (0.0-13.0); NEUTROPHILS # (AUTO) 5.9 x10^3/uL (2.2-4.8); PLATELET COUNT 181 X10^3/uL (150.0-450.0); RED BLOOD COUNT 4.27 X10^6/uL (3.5-5.4); RED CELL DISTRIBUTION WIDTH 13.6 % (11.6-16.5); WHITE BLOOD COUNT 9.1 X10^3/uL (3.6-10.0)
[2019-06-23 13:29] LABS: AMORPHOUS SEDIMENT,UR TRACE /HPF (NEGATIVE); BACTERIA,URINE TRACE /HPF (NEGATIVE); SQUAMOUS EPITHELIAL CELL,UR FEW /HPF (NEGATIVE)
[2019-06-23 13:38] LABS: ALANINE AMINOTRANSFERASE 14 Units/L (12-78); ALBUMIN 3.2 g/dL (3.4-5.0); ALKALINE PHOSPHATASE 82 Units/L (46-116); AMYLASE 23 Units/L (25-115); ASPARTATE AMINO TRANSFERASE 14 Units/L (15-37); BLOOD UREA NITROGEN 12 mg/dL (7-18); CALCIUM 8.7 mg/dL (8.5-10.1); CARBON DIOXIDE 30.1 mmol/L (21-32); CHLORIDE 103 mmol/L (98-107); COR CA(FOR HYPOALB) 9.3 mg/dL (8.5-10.1); CREATININE 0.86 mg/dL (0.55-1.02); LIPASE 50 Units/L (73-393); SODIUM 138 mmol/L (136-145); TOTAL PROTEIN 6.7 g/dL (6.4-8.2); eGFR NON BLACK RACES > 60 (>60)
[2019-06-23] MEDS ORDERED: ZOFRAN INJ 4 MG VIAL IVP PRN (15:25)
[2019-06-23] MEDS ORDERED: NS 100 ML IV + SPIKE MINIBAG* 100 ML IV ONE (15:36)
[2019-06-23] MEDS ORDERED: ZOSYN VIAL 3.375 GRAMS IV ONE (15:37)
[2019-06-23] MEDS: NS 1000 ML 1,000 ML IV SCH (15:45)
[2019-06-23] MEDS: DEMEROL INJ IVP PRN ×2 (15:45→20:48)
[2019-06-23] MEDS: ZOSYN VIAL 3.375 GRAMS 3.375 G in NS 100 ML IV + SPIKE MINIBAG* 100 ML IV SCH ×2 (16:02→22:42)
--- NOTE | 2019-06-23 17:39 | DR.H&P ---
H&P - History & Physical for Day of: H&P Date: 06/23/19 - Chief Complaint Chief Complaint: ABDOMINAL PAIN - History of Present Illness History of Present Illness: IS A 58 YEAR OLD PATIENT OF OURS WHO PRESENTED TO THE ER WITH COMPLAINTS OF LOWER ABDOMINAL PAIN X 2 DAYS. SHE HAS A HISTORY OF DIVERTICULITIS AND STATES THAT THIS PAIN IS SIMILAR. ON ARRIVAL, VITALS WERE 98.6-88-18-98%-127/70. LABS WERE OBTAINED. ABNORMAL LAB VALUES INCL UDE THE FOLLOWING: AST 14, ALBUMIN 3.2, AMYLASE 23, LIPASE 50. URINALYSIS REVEALED: WBC 3-5, RBC 3-5, LEUKOCYTES 1+, BACTERIA TRACE, OCCULT BLOOD 1+. URINE CULURE IS PENDING. AN ABDOMEN/PELVIS CT WITHOUT CONTRAST WAS OBTAINED AND REVEALED: Findings compatible with acute diverticulitis involving the distal colon as described without evidence of abscess or perforation. SHE WAS ADMITTED FOR FURTHER EVALUATION AND TREATMENT OF ACUTE DIVERTICULITIS, ABDOMINAL PAIN, AND A URINARY TRACT INFECTION. SHE WAS STARTED ON NORMAL SALINE AT 125ML/HR, IV ZOSYN, IV FLAGYL, DEMEROL 25MG IV Q4H PRN, AND ZOFRAN 4MG IV Q6H PRN. WE PLAN TO FOLLOW UP WITH AM LABS AND CONTINUE TO MONITOR. - Past Medical History Past Medical History: Hypertension, Depression, Anxiety, COPD, GERD - Past Surgical History Surgical History: Cholecystectomy, , Ortho Surgery - Family History Family Medical History: Diabetes Mellitus, [place], Hypertension - Social History Does patient currently use any type of tobacco product: Yes Have you used tobacco products in the last 12 months: Yes Type of Tobacco Use: Cigarettes How many years tobacco product used: 20 Does any household member use tobacco: Yes Alcohol Use: None Drug Use: None Prescription drug monitoring program results: PDMP was not reviewed - Medications Home Medications: No Known Drug Allergies Allergy (Verified 06/23/19 11:58) CONTINUE taking the following medications omeprazole 20 mg PO BID 06/23/19 [History] - Review of Systems Constitutional: No Symptoms Reported Eyes: No Symptoms Reported ENT: No Symptoms Reported Respiratory: No Symptoms Reported Cardiovascular: No Symptoms Reported Gastrointestinal: Nausea, Abdominal Pain Genitourinary: No Symptoms Reported Musculoskeletal: No Symptoms Reported Skin: No Symptoms Reported Neurological: Weakness - Physical Exam Vital Signs: Temperature 98.6 F Pulse Rate 88 Respiratory Rate 16 Blood Pressure [Left Arm] 128/73 Blood Pressure 127/70 O2 Sat by Pulse Oximetry 100 Oriented: Normal Eyes: Normal Ear: Normal Nose: Normal Throat: Normal Respiratory: Diminished Throughout Cardiovascular: Normal : Normal Auscultation: Bowel Sounds: Normal Palpation: Normal Tenderness: Diffuse, Moderate. negative: Rebound, Guarding, Rigidity Skin: Normal Musculoskeletal: Normal Psychiatric: Normal Mood Description: Calm Affect: Normal Speech Pattern: Clear - Assessment/Plan (1) Acute diverticulitis Status: Acute Plan: ADMIT, NORMAL SALINE AT 125ML/HR, IV ZOSYN, IV FLAGYL, DEMEROL 25MG IV Q4H PRN, AND ZOFRAN 4MG IV Q6H PRN (2) Abdominal pain Qualifiers: Abdominal location: generalized Qualified Code(s): R10.84 - Generalized abdominal pain Status: Acute - Allergies Allergies/Adverse Reactions: Allergies Allergy/AdvReac Type Severity Reaction Status Date / Time No Known Drug Allergies Allergy Verified 06/23/19 11:58
[2019-06-23] MEDS ORDERED: PEPCID 20 MG IV PREMIX* 20 MG/50 ML BAG IV PRN (17:55)
[2019-06-23] MEDS: FLAGYL IV PREMIX 500 MG BAG 500 MG/100 ML BAG IV SCH (21:13)
[2019-06-23 21:38] LABS: BILIRUBIN,URINE NEGATIVE (NEGATIVE); BLOOD/HEMOGLOBIN,URINE 2+ (NEGATIVE); GLUCOSE, URINE NEGATIVE (NEGATIVE); KETONES,URINE 3+ (NEGATIVE); LEUKOCYTE ESTERASE ,URINE NEGATIVE (NEGATIVE); NITRITES,URINE NEGATIVE (NEGATIVE); PROTEIN,URINE NEGATIVE (NEGATIVE); UROBILINOGEN,URINE NORMAL (NORMAL)
[2019-06-23 21:39] LABS: APPEARANCE,URINE CLEAR (CLEAR); COLOR,URINE YELLOW (YELLOW)
[2019-06-23 21:43] LABS: RBC,URINE 0-2 /HPF (0-3); SQUAMOUS EPITHELIAL CELL,UR FEW /HPF (NEGATIVE)
[2019-06-23 21:44] LABS: BACTERIA,URINE TRACE /HPF (NEGATIVE)
[2019-06-24] MEDS: NS 1000 ML 1,000 ML IV SCH ×3 (01:54→15:01)
[2019-06-24] MEDS: FLAGYL IV PREMIX 500 MG BAG 500 MG/100 ML BAG IV SCH ×4 (03:04→20:31)
[2019-06-24] MEDS: ZOSYN VIAL 3.375 GRAMS 3.375 G in NS 100 ML IV + SPIKE MINIBAG* 100 ML IV SCH ×3 (05:13→22:37)
[2019-06-24 05:16] LABS: BASOPHILS # (AUTO) 0.1 X10^3/uL (0.0-0.1); EOSINOPHILS # (AUTO) 0.3 x10^3/uL (0.0-0.2); EOSINOPHILS % (AUTO) 4.8 % (0.9-2.9); HEMATOCRIT 38.7 % (36.0-47.0); LYMPHOCYTES # (AUTO) 1.8 X10^3/uL (1.3-2.9); LYMPHOCYTES % (AUTO) 30.2 % (21.0-51.0); MEAN CORPUSCULAR HEMOGLOBIN 31.3 pg (27.0-34.0); MEAN CORPUSCULAR HGB CONC 33.7 g/dL (33.0-35.0); MEAN CORPUSCULAR VOLUME 92.7 fL (80.0-100.0); MEAN PLATELET VOLUME 9.6 fL (7.4-11.0); MONOCYTES # (AUTO) 0.5 x10^3/uL (0.3-0.8); MONOCYTES % (AUTO) 8.5 % (0.0-13.0); NEUTROPHILS # (AUTO) 3.3 x10^3/uL (2.2-4.8); NEUTROPHILS % (AUTO) 55.5 % (42.0-75.0); PLATELET COUNT 163 X10^3/uL (150.0-450.0); RED BLOOD COUNT 4.17 X10^6/uL (3.5-5.4); RED CELL DISTRIBUTION WIDTH 13.3 % (11.6-16.5)
[2019-06-24 05:30] LABS: ALANINE AMINOTRANSFERASE 13 Units/L (12-78); ALBUMIN 2.8 g/dL (3.4-5.0); ALKALINE PHOSPHATASE 72 Units/L (46-116); ASPARTATE AMINO TRANSFERASE 15 Units/L (15-37); BLOOD UREA NITROGEN 10 mg/dL (7-18); CALCIUM 8.4 mg/dL (8.5-10.1); CARBON DIOXIDE 26.2 mmol/L (21-32); CHLORIDE 105 mmol/L (98-107); COR CA(FOR HYPOALB) 9.4 mg/dL (8.5-10.1); CREATININE 0.81 mg/dL (0.55-1.02); SODIUM 140 mmol/L (136-145); eGFR NON BLACK RACES > 60 (>60)
[2019-06-24] MEDS ORDERED: K-RIDER 10 MEQ/NS 100 ML 10 MEQ/100 ML BAG IV PRN (05:45)
[2019-06-24] MEDS ORDERED: POTASSIUM CHL 40 MEQ/NS 0.45% 500 ML IV PRN (05:45)
[2019-06-24] MEDS ORDERED: MICRO K EXTEN CAP 10 MEQ PO PRN (05:45)
[2019-06-24] MEDS ORDERED: POTASSIUM CHL 60 MEQ/NS 0.45% 500 ML IV PRN (05:45)
[2019-06-24] MEDS ORDERED: KLOR-CON PO PRN (05:45)
[2019-06-24] MEDS ORDERED: POTASSIUM CHLORIDE LIQ 20 MEQ UDC PO PRN (05:45)
[2019-06-24] MEDS ORDERED: MAGNESIUM SULFATE 1 GRAM/100 mL PREMIX 1 G/100 ML BAG IV ONE (05:59)
[2019-06-24] MEDS: K-DUR TAB 20 MEQ PO PRN (06:18)
[2019-06-24] MEDS ORDERED: PHARMACY CONSULT - DOSE _____ XX SCH (10:00)
[2019-06-24] MEDS ORDERED: ZANAFLEX PO PRN (10:05)
[2019-06-24] MEDS ORDERED: ULTRAM PO PRN (10:05)
[2019-06-24] MEDS: MAG-OX TAB PO SCH (10:14)
[2019-06-24] MEDS ORDERED: LEXAPRO ONE (10:27)
[2019-06-24] MEDS: LEXAPRO PO SCH (10:29)
[2019-06-24] MEDS: PriLOSEC PO SCH ×2 (10:29→20:29)
[2019-06-24] MEDS: LOVENOX INJ 40 MG SYR SC SCH (10:30)
[2019-06-24] MEDS: DEMEROL INJ IVP PRN ×2 (10:33→20:31)
[2019-06-24] MEDS: PRAVACHOL PO SCH (20:29)
--- NOTE | 2019-06-24 20:42 | PCM.PROG ---
Progress Note - Progress Note for Day of Date of Exam: 06/24/19 - Subjective Subjective: IS BEING TREATED FOR ACUTE DIVERTICULITIS. TODAY, SHE IS ALERT AND ORIENTED, LYING IN BED ON MORNING ROUNDS. SHE CONTINUES WITH COMPLAINTS OF LOWER ABDOMINAL PAIN THIS MORNING. ON EXAMINATION, HEART IS REGULAR IN RATE AND RHYTHM. BILATERAL LUNGS ARE NOTED WITH DIMINISHED LUNGS SOUNDS THROUGHOUT. ABDOMEN IS ROUND, SOFT, AND NOTED WITH DIFFUSE TENDERNESS. NORMAL BOWEL SOUNDS NOTED IN ALL QUADRANTS. HER VITALS THIS MORNING ARE: 98.0-68-18-91%-127/77. LABS WERE OBTAINED. ABNORMAL LAB VALUES INCLUDE THE FOLLOWING: CALCIUM 8.4, TOTAL PROTEIN 6.0, ALBUMIN 2.8, CRP 88.80, ESR 21. A URINE CULTURE IS PENDING. SHE IS CURRENTLY RECEIVING NORMAL SALINE AT 125ML/HR, IV ZOSYN, IV FLAGYL, DEMEROL 25MG IV Q4H PRN, AND ZOFRAN 4MG IV Q6H PRN. WE WILL CONTINUE WITH CURRENT PLAN OF CARE TODAY. OTHERWISE, WE WILL FOLLOW UP WITH AM LABS AND CONTINUE TO MONITOR. - Past Medical Family Social History Past Med/Fam/Surg Hx: No changes since H&P Allergies: Allergies No Known Drug Allergies Allergy (Verified 06/23/19 11:58) - Review of Systems ROS: No change since H&P - Vital Signs and I&O's Vital Signs: Temperature 98.3 F Pulse Rate [Left Brachial] 72 Pulse Rate [Right Brachial] 64 Pulse Rate [Right Dorsalis 72 Pedis] Pulse Rate 88 Respiratory Rate 16 Blood Pressure [Right Arm] 129/79 Blood Pressure [Left Arm] 128/56 Blood Pressure 127/70 O2 Sat by Pulse Oximetry 96 Intake and Output: Intake & Output 06/22/19 06/23/19 06/24/19 06/25/19 11:59 11:59 11:59 11:59 Intake Total 860 / 860 760 / 760 Balance 860 / 860 760 / 760 - Physical Exam Oriented: Normal Eyes: Normal Ear: Normal Nose: Normal Throat: Normal Respiratory: Generalized, Diminished Cardiovascular: Normal : Normal Auscultation: Bowel Sounds: Normal Palpation: Normal Tenderness: Diffuse, Mild. negative: Rebound, Guarding, Rigidity Skin: Normal Musculoskeletal: Normal Psychiatric: Normal Mood Description: Calm Affect: Normal Speech Pattern: Clear, Appropriate - Laboratory and Diagnostics Result Diagrams: 06/24/19 04:42 06/24/19 04:42 Labs: 06/23/19 12:57 Urine,Clean Catch Urine Culture - Preliminary Laboratory WBC 6.0 X10^3/uL (3.6-10.0) 06/24/19 04:42 RBC 4.17 X10^6/uL (3.5-5.4) 06/24/19 04:42 Hgb 13.0 g/dL (12.0-16.0) 06/24/19 04:42 Hct 38.7 % (36.0-47.0) 06/24/19 04:42 MCV 92.7 fL (80.0-100.0) 06/24/19 04:42 MCH 31.3 pg (27.0-34.0) 06/24/19 04:42 MCHC 33.7 g/dL (33.0-35.0) 06/24/19 04:42 RDW 13.3 % (11.6-16.5) 06/24/19 04:42 Plt Count 163 X10^3/uL (150.0-450.0) 06/24/19 04:42 MPV 9.6 fL (7.4-11.0) 06/24/19 04:42 Neut % (Auto) 55.5 % (42.0-75.0) 06/24/19 04:42 Lymph % (Auto) 30.2 % (21.0-51.0) 06/24/19 04:42 [place] % (Auto) 8.5 % (0.0-13.0) 06/24/19 04:42 Eos % (Auto) 4.8 % (0.9-2.9) H 06/24/19 04:42 Baso % (Auto) 1.0 % (0.2-1.0) 06/24/19 04:42 Neut # (Auto) 3.3 x10^3/uL (2.2-4.8) 06/24/19 04:42 Lymph # (Auto) 1.8 X10^3/uL (1.3-2.9) 06/24/19 04:42 [place] # (Auto) 0.5 x10^3/uL (0.3-0.8) 06/24/19 04:42 Eos # (Auto) 0.3 x10^3/uL (0.0-0.2) H 06/24/19 04:42 Baso # (Auto) 0.1 X10^3/uL (0.0-0.1) 06/24/19 04:42 Absolute Nucleated RBC 0.0 /100WBC 06/24/19 04:42 ESR 21 MM/HOUR (0-20) H 06/24/19 04:42 Sodium 140 mmol/L (136-145) 06/24/19 04:42 Corrected Sodium TNP 06/24/19 04:42 Potassium 3.5 mmol/L (3.5-5.1) 06/24/19 04:42 Chloride 105 mmol/L (98-107) 06/24/19 04:42 Carbon Dioxide 26.2 mmol/L (21-32) 06/24/19 04:42 BUN 10 mg/dL (7-18) 06/24/19 04:42 Creatinine 0.81 mg/dL (0.55-1.02) 06/24/19 04:42 Est GFR (MDRD) Af Amer > 60 (>60) 06/24/19 04:42 Est GFR (MDRD) Non-Af > 60 (>60) 06/24/19 04:42 Glucose 80 mg/dL (65-99) 06/24/19 04:42 Calcium 8.4 mg/dL (8.5-10.1) L 06/24/19 04:42 Corrected Calcium 9.4 mg/dL (8.5-10.1) 06/24/19 04:42 Magnesium 1.9 mg/dL (1.7-2.9) 06/24/19 04:42 Total Bilirubin 0.70 mg/dL (0.2-1.0) 06/24/19 04:42 AST 15 Units/L (15-37) 06/24/19 04:42 ALT 13 Units/L (12-78) 06/24/19 04:42 Alkaline Phosphatase 72 Units/L (46-116) 06/24/19 04:42 C-Reactive Protein 88.80 mg/L (0-3.0) H 06/24/19 04:42 Total Protein 6.0 g/dL (6.4-8.2) L 06/24/19 04:42 Albumin 2.8 g/dL (3.4-5.0) L 06/24/19 04:42 Globulin 3.2 g/dL (2.5-4.5) 06/24/19 04:42 Albumin/Globulin Ratio 0.9 Ratio (1.1-2.1) L 06/24/19 04:42 Amylase 23 Units/L (25-115) L 06/23/19 13:18 Lipase 50 Units/L (73-393) L 06/23/19 13:18 Specimen Type Clean catch urine 06/23/19 21:27 Urine Color Yellow (YELLOW) 06/23/19 21: Urine Appearance Clear (CLEAR) 06/23/19 21: Urine pH 5.0 (5.0 - 8.0) 06/23/19 21: Ur Specific [place] 1.015 (1.000-1.030) 06/23/19 21:27 Urine Protein Negative (NEGATIVE) 06/23/19 21: Urine Glucose (UA) Negative (NEGATIVE) 06/23/19 21:27 Urine Ketones 3+ (NEGATIVE) 06/23/19 21: Urine Occult Blood 2+ (NEGATIVE) 06/23/19 21: Urine Nitrite Negative (NEGATIVE) 06/23/19 21: Urine Bilirubin Negative (NEGATIVE) 06/23/19 21:27 Urine Urobilinogen Normal (NORMAL) 06/23/19 21:27 Ur Leukocyte Esterase Negative (NEGATIVE) 06/23/19 21:27 Urine RBC 0-2 /HPF (0-3) 06/23/19 21: Urine WBC 0-2 /HPF (0-5) 06/23/19 21:27 Ur Squamous Epith Cells Few /HPF (NEGATIVE) 06/23/19 21:27 Amorphous Sediment Trace /HPF (NEGATIVE) 06/23/19 12:57 Urine Bacteria Trace /HPF (NEGATIVE) 06/23/19 21: Ur Culture Indicated? No/not indicated 06/23/19 21:27 - Plan (1) Acute diverticulitis Status: Acute Plan: NORMAL SALINE AT 125ML/HR, IV ZOSYN, IV FLAGYL, DEMEROL 25MG IV Q4H PRN, AND ZOFRAN 4MG IV Q6H PRN (2) Abdominal pain Status: Acute Qualifiers: Abdominal location: generalized Qualified Code(s): R10.84 - Generalized abdominal pain
[2019-06-25] MEDS: NS 1000 ML 1,000 ML IV SCH ×4 (02:39→20:19)
[2019-06-25] MEDS: FLAGYL IV PREMIX 500 MG BAG 500 MG/100 ML BAG IV SCH ×4 (03:26→20:19)
[2019-06-25 04:48] LABS: BASOPHILS % (AUTO) 0.5 % (0.2-1.0); EOSINOPHILS # (AUTO) 0.1 x10^3/uL (0.0-0.2); EOSINOPHILS % (AUTO) 1.8 % (0.9-2.9); HEMATOCRIT 41.1 % (36.0-47.0); HEMOGLOBIN 13.8 g/dL (12.0-16.0); LYMPHOCYTES # (AUTO) 1.8 X10^3/uL (1.3-2.9); LYMPHOCYTES % (AUTO) 25.4 % (21.0-51.0); MEAN CORPUSCULAR HEMOGLOBIN 31.3 pg (27.0-34.0); MEAN CORPUSCULAR HGB CONC 33.7 g/dL (33.0-35.0); MEAN CORPUSCULAR VOLUME 92.8 fL (80.0-100.0); MEAN PLATELET VOLUME 9.7 fL (7.4-11.0); MONOCYTES # (AUTO) 0.4 x10^3/uL (0.3-0.8); NEUTROPHILS # (AUTO) 4.9 x10^3/uL (2.2-4.8); NEUTROPHILS % (AUTO) 67.3 % (42.0-75.0); PLATELET COUNT 214 X10^3/uL (150.0-450.0); RED BLOOD COUNT 4.43 X10^6/uL (3.5-5.4); RED CELL DISTRIBUTION WIDTH 13.1 % (11.6-16.5); WHITE BLOOD COUNT 7.3 X10^3/uL (3.6-10.0)
[2019-06-25 04:57] LABS: ALANINE AMINOTRANSFERASE 12 Units/L (12-78); ALBUMIN 3.2 g/dL (3.4-5.0); ALKALINE PHOSPHATASE 80 Units/L (46-116); ASPARTATE AMINO TRANSFERASE 17 Units/L (15-37); BLOOD UREA NITROGEN 12 mg/dL (7-18); CALCIUM 8.7 mg/dL (8.5-10.1); CARBON DIOXIDE 22.4 mmol/L (21-32); CHLORIDE 103 mmol/L (98-107); COR CA(FOR HYPOALB) 9.3 mg/dL (8.5-10.1); CREATININE 0.86 mg/dL (0.55-1.02); MAGNESIUM 1.9 mg/dL (1.7-2.9); SODIUM 138 mmol/L (136-145); TOTAL PROTEIN 6.8 g/dL (6.4-8.2); eGFR NON BLACK RACES > 60 (>60)
[2019-06-25] MEDS: ZOSYN VIAL 3.375 GRAMS 3.375 G in NS 100 ML IV + SPIKE MINIBAG* 100 ML IV SCH ×3 (05:33→21:43)
[2019-06-25] MEDS: LEXAPRO PO SCH (08:34)
[2019-06-25] MEDS: MAG-OX TAB PO SCH (08:34)
[2019-06-25] MEDS: LOVENOX INJ 40 MG SYR SC SCH (08:34)
[2019-06-25] MEDS: PriLOSEC PO SCH ×2 (08:34→20:20)
--- NOTE | 2019-06-25 10:28 | PCM.PROG ---
Progress Note - Progress Note for Day of Date of Exam: 06/25/19 - Subjective Subjective: IS BEING TREATED FOR ACUTE DIVERTICULITIS. TODAY, SHE IS ALERT AND ORIENTED, LYING IN BED ON MORNING ROUNDS. SHE CONTINUES WITH COMPLAINTS OF LOWER ABDOMINAL PAIN THIS MORNING, BUT REPORTS SLIGHT IMPROVEMENT. ON EXAMINATION, HEART IS REGULAR IN RATE AND RHYTHM. BILATERAL LUNGS ARE NOTED WITH DIMINISHED LUNGS SOUNDS THROUGHOUT. ABDOMEN IS ROUND, SOFT, AND NOTED WITH DIFFUSE TENDERNESS. NORMAL BOWEL SOUNDS NOTED IN ALL QUADRANTS. HER VITALS THIS MORNING ARE: 98.1-73-18-96%-139/81. LABS WERE OBTAINED. ABNORMAL LAB VALUES INCLUDE THE FOLLOWING: ALBUMIN 3.2, CRP 56.00. A URINE CULTURE IS PENDING. SHE IS CURRENTLY RECEIVING NORMAL SALINE AT 125ML/HR, IV ZOSYN, IV FLAGYL, DEMEROL 25MG IV Q4H PRN, AND ZOFRAN 4MG IV Q6H PRN. WE WILL CONTINUE WITH CURRENT PLAN OF CARE TODAY. WE WILL REPEAT AN ABDOMEN/PELVIS CT WITH CONTRAST IN THE MORNING. OTHERWISE, WE WILL FOLLOW UP WITH AM LABS AND CONTINUE TO MONITOR. - Past Medical Family Social History Past Med/Fam/Surg Hx: No changes since H&P Allergies: Allergies No Known Drug Allergies Allergy (Verified 06/23/19 11:58) - Review of Systems ROS: No change since H&P - Vital Signs and I&O's Vital Signs: Temperature 98.1 F Pulse Rate [Left Brachial] 73 Pulse Rate [Right Brachial] 64 Pulse Rate [Right Dorsalis 72 Pedis] Pulse Rate 88 Respiratory Rate 18 Blood Pressure [Right Arm] 129/79 Blood Pressure [Left Arm] 139/81 Blood Pressure 127/70 O2 Sat by Pulse Oximetry 96 Intake and Output: Intake & Output 06/22/19 06/23/19 06/24/19 06/25/19 11:59 11:59 11:59 11:59 Intake Total 860 / 860 1675 / 1675 Balance 860 / 860 1675 / 1675 - Physical Exam Oriented: Normal Eyes: Normal Ear: Normal Nose: Normal Throat: Normal Respiratory: Generalized, Diminished Cardiovascular: Normal : Normal Auscultation: Bowel Sounds: Normal Palpation: Normal Tenderness: Diffuse, Mild. negative: Rebound, Guarding, Rigidity Skin: Normal Musculoskeletal: Normal Psychiatric: Normal Mood Description: Calm Affect: Normal Speech Pattern: Clear, Appropriate - Laboratory and Diagnostics Result Diagrams: 06/25/19 04:14 06/25/19 04:14 Labs: 06/23/19 12:57 Urine,Clean Catch Urine Culture - Final Laboratory WBC 7.3 X10^3/uL (3.6-10.0) 06/25/19 04:14 RBC 4.43 X10^6/uL (3.5-5.4) 06/25/19 04:14 Hgb 13.8 g/dL (12.0-16.0) 06/25/19 04:14 Hct 41.1 % (36.0-47.0) 06/25/19 04:14 MCV 92.8 fL (80.0-100.0) 06/25/19 04:14 MCH 31.3 pg (27.0-34.0) 06/25/19 04:14 MCHC 33.7 g/dL (33.0-35.0) 06/25/19 04:14 RDW 13.1 % (11.6-16.5) 06/25/19 04:14 Plt Count 214 X10^3/uL (150.0-450.0) 06/25/19 04:14 MPV 9.7 fL (7.4-11.0) 06/25/19 04:14 Neut % (Auto) 67.3 % (42.0-75.0) 06/25/19 04:14 Lymph % (Auto) 25.4 % (21.0-51.0) 06/25/19 04:14 [place] % (Auto) 5.0 % (0.0-13.0) 06/25/19 04:14 Eos % (Auto) 1.8 % (0.9-2.9) 06/25/19 04:14 Baso % (Auto) 0.5 % (0.2-1.0) 06/25/19 04:14 Neut # (Auto) 4.9 x10^3/uL (2.2-4.8) H 06/25/19 04:14 Lymph # (Auto) 1.8 X10^3/uL (1.3-2.9) 06/25/19 04:14 [place] # (Auto) 0.4 x10^3/uL (0.3-0.8) 06/25/19 04:14 Eos # (Auto) 0.1 x10^3/uL (0.0-0.2) 06/25/19 04:14 Baso # (Auto) 0.0 X10^3/uL (0.0-0.1) 06/25/19 04:14 Absolute Nucleated RBC 0.0 /100WBC 06/25/19 04:14 ESR 28 MM/HOUR (0-20) H 06/25/19 04:14 Sodium 138 mmol/L (136-145) 06/25/19 04:14 Corrected Sodium TNP 06/25/19 04:14 Potassium 4.0 mmol/L (3.5-5.1) 06/25/19 04:14 Chloride 103 mmol/L (98-107) 06/25/19 04:14 Carbon Dioxide 22.4 mmol/L (21-32) 06/25/19 04:14 BUN 12 mg/dL (7-18) 06/25/19 04:14 Creatinine 0.86 mg/dL (0.55-1.02) 06/25/19 04:14 Est GFR (MDRD) Af Amer > 60 (>60) 06/25/19 04:14 Est GFR (MDRD) Non-Af > 60 (>60) 06/25/19 04:14 Glucose 68 mg/dL (65-99) 06/25/19 04:14 Calcium 8.7 mg/dL (8.5-10.1) 06/25/19 04:14 Corrected Calcium 9.3 mg/dL (8.5-10.1) 06/25/19 04:14 Magnesium 1.9 mg/dL (1.7-2.9) 06/25/19 04:14 Total Bilirubin 0.70 mg/dL (0.2-1.0) 06/25/19 04:14 AST 17 Units/L (15-37) 06/25/19 04:14 ALT 12 Units/L (12-78) 06/25/19 04:14 Alkaline Phosphatase 80 Units/L (46-116) 06/25/19 04:14 C-Reactive Protein 56.00 mg/L (0-3.0) H 06/25/19 04:14 Total Protein 6.8 g/dL (6.4-8.2) 06/25/19 04:14 Albumin 3.2 g/dL (3.4-5.0) L 06/25/19 04:14 Globulin 3.6 g/dL (2.5-4.5) 06/25/19 04:14 Albumin/Globulin Ratio 0.9 Ratio (1.1-2.1) L 06/25/19 04:14 Amylase 23 Units/L (25-115) L 06/23/19 13:18 Lipase 50 Units/L (73-393) L 06/23/19 13:18 Specimen Type Clean catch urine 06/23/19 21: Urine Color Yellow (YELLOW) 06/23/19 21: Urine Appearance Clear (CLEAR) 06/23/19 21: Urine pH 5.0 (5.0 - 8.0) 06/23/19 21: Ur Specific [place] 1.015 (1.000-1.030) 06/23/19 21: Urine Protein Negative (NEGATIVE) 06/23/19 21: Urine Glucose (UA) Negative (NEGATIVE) 06/23/19 21: Urine Ketones 3+ (NEGATIVE) 06/23/19 21: Urine Occult Blood 2+ (NEGATIVE) 06/23/19 21: Urine Nitrite Negative (NEGATIVE) 06/23/19 21: Urine Bilirubin Negative (NEGATIVE) 06/23/19 21: Urine Urobilinogen Normal (NORMAL) 06/23/19 21:27 Ur Leukocyte Esterase Negative (NEGATIVE) 06/23/19 21: Urine RBC 0-2 /HPF (0-3) 06/23/19 21: Urine WBC 0-2 /HPF (0-5) 06/23/19 21:27 Ur Squamous Epith Cells Few /HPF (NEGATIVE) 06/23/19 21: Amorphous Sediment Trace /HPF (NEGATIVE) 06/23/19 12:57 Urine Bacteria Trace /HPF (NEGATIVE) 06/23/19 21: Ur Culture Indicated? No/not indicated 06/23/19 21: - Plan (1) Acute diverticulitis Status: Acute Plan: NORMAL SALINE AT 125ML/HR, IV ZOSYN, IV FLAGYL, DEMEROL 25MG IV Q4H PRN, AND ZOFRAN 4MG IV Q6H PRN (2) Abdominal pain Status: Acute Qualifiers: Abdominal location: generalized Qualified Code(s): R10.84 - Generalized abdominal pain
[2019-06-25] MEDS: PRAVACHOL PO SCH (20:20)
[2019-06-26] MEDS: FLAGYL IV PREMIX 500 MG BAG 500 MG/100 ML BAG IV SCH ×2 (02:47→08:52)
[2019-06-26] MEDS: NS 1000 ML 1,000 ML IV SCH ×2 (03:33→08:50)
[2019-06-26] MEDS: ZOSYN VIAL 3.375 GRAMS 3.375 G in NS 100 ML IV + SPIKE MINIBAG* 100 ML IV SCH ×2 (05:48→13:58)
[2019-06-26 06:58] LABS: BASOPHILS # (AUTO) 0.1 X10^3/uL (0.0-0.1); EOSINOPHILS # (AUTO) 0.2 x10^3/uL (0.0-0.2); EOSINOPHILS % (AUTO) 3.3 % (0.9-2.9); HEMATOCRIT 38.6 % (36.0-47.0); HEMOGLOBIN 13.1 g/dL (12.0-16.0); LYMPHOCYTES # (AUTO) 1.9 X10^3/uL (1.3-2.9); LYMPHOCYTES % (AUTO) 34.5 % (21.0-51.0); MEAN CORPUSCULAR HEMOGLOBIN 31.2 pg (27.0-34.0); MEAN CORPUSCULAR HGB CONC 33.9 g/dL (33.0-35.0); MEAN PLATELET VOLUME 9.3 fL (7.4-11.0); MONOCYTES # (AUTO) 0.5 x10^3/uL (0.3-0.8); MONOCYTES % (AUTO) 9.2 % (0.0-13.0); NEUTROPHILS # (AUTO) 2.9 x10^3/uL (2.2-4.8); PLATELET COUNT 214 X10^3/uL (150.0-450.0); RED CELL DISTRIBUTION WIDTH 13.4 % (11.6-16.5); WHITE BLOOD COUNT 5.6 X10^3/uL (3.6-10.0)
[2019-06-26] MEDS ORDERED: TYLENOL 325 MG TAB PO PRN (07:05)
[2019-06-26 07:10] LABS: ALANINE AMINOTRANSFERASE 10 Units/L (12-78); ALKALINE PHOSPHATASE 67 Units/L (46-116); ASPARTATE AMINO TRANSFERASE 14 Units/L (15-37); BLOOD UREA NITROGEN 6 mg/dL (7-18); CALCIUM 8.3 mg/dL (8.5-10.1); CARBON DIOXIDE 24.8 mmol/L (21-32); CHLORIDE 106 mmol/L (98-107); COR CA(FOR HYPOALB) 9.1 mg/dL (8.5-10.1); CREATININE 0.77 mg/dL (0.55-1.02); SODIUM 141 mmol/L (136-145); TOTAL PROTEIN 6.1 g/dL (6.4-8.2); eGFR NON BLACK RACES > 60 (>60)
[2019-06-26 07:50] LABS: ERYTHROCYTE SEDIMENTATION RATE 22 MM/HOUR (0-20)
[2019-06-26] MEDS: PriLOSEC PO SCH (08:53)
[2019-06-26] MEDS: LEXAPRO PO SCH (09:01)
[2019-06-26] MEDS: K-DUR TAB 20 MEQ PO PRN (09:01)
[2019-06-26] MEDS: MAG-OX TAB PO SCH (09:01)
[2019-06-26] MEDS: LOVENOX INJ 40 MG SYR SC SCH (09:02)
--- NOTE | 2019-06-26 09:18 | CT ---
CT ABDOMEN AND PELVIS WITH ORAL AND IV CONTRAST CLINICAL HISTORY: 58-year-old female with lower abdominal and left flank/left lower quadrant pain. History of COPD. Prior and cholecystectomy. Patient with known diverticulitis diagnosed on CT of the abdomen and pelvis performed 06/23/2019. COMPARISON: CT abdomen and pelvis 06/23/2019. TECHNIQUE: Multiple contiguous axial images were obtained following the administration of intravenous and oral contrast. Images were reformatted in the coronal and sagittal planes. Dose reduction techniques including Automated Exposure Control (AEC) and adjustment of mA and kV were utilized. FINDINGS: The lung bases are clear without pulmonary nodules, masses, or pleural fluid collections. The inferior imaged heart is normal in size and there is no pericardial effusion. The liver, gallbladder, pancreas, and spleen are within normal limits. The adrenal glands are normal bilaterally. The kidneys perfuse and excrete in a normal fashion and the ureters run in an unobstructed course to a moderately distended urinary bladder. No nephroureterolithiasis or hydroureteronephrosis. The uterus is anteverted and normal in size. The ovaries, perineum and vagina are within normal limits. Multiple pelvic phleboliths. Persistent but resolving inflammation within the left lower quadrant in the region of prior identified diverticulitis. No free air, free fluid or fluid collection to suggest perforation or abscess. The remaining bowel is without obstruction or inflammation and there is no free fluid or free air within the peritoneal cavity. Appendix is normal. There are no pathologically enlarged lymph nodes in the abdomen or pelvis. The arteriovascular structures are within normal limits. Soft tissues are normal. The osseous structures are intact without fracture or malalignment. IMPRESSION: 1. Resolving acute diverticulitis involving the distal descending colon as described without perforation or abscess. 2. No other acute intra-abdominal or intrapelvic process. Reported By:
[2019-06-26 12:05] VITALS: BP 139/86
== END 2019-06-26 16:05 | disposition home or self-care (01) | DRG 392 ==
LOC: ER 11:57 → MED/SURG 15:37
PROVIDERS: ADMIT Internal Medicine; ATTEND Internal Medicine
DX: J44.9 Chronic obstructive pulmonary disease, unspecified; F41.8 Other specified anxiety disorders; K21.9 Gastro-esophageal reflux disease without esophagitis; I10 Essential (primary) hypertension; K57.32 Diverticulitis of large intestine without perforation or abscess without bleeding; N39.0 Urinary tract infection, site not specified; R10.84 Generalized abdominal pain
CPT/HCPCS: 36415; 74176; 74177; 80053; 81001; 82150; 83690; 83735; 84132; 85025; 85652; 86140; 87086; 96365; 96374; 96375; 99284; A4222; S0030; J1650; J2175; J2405; J2543; J3490; J7030; J7050